=== PATIENT | female | born 1950 | race Caucasian/White ===

== ENCOUNTER 2016-06-03 20:51 | Emergency (ER) | payer OTHER ==
[2016-06-03 21:00] VITALS: RESP 16
[2016-06-03] MEDS ORDERED: HYDROmorphONE/DILAUDID 1 MG/ML SYR ONE (21:15)
[2016-06-03] MEDS ORDERED: ONDANSETRON 4 MG/2 ML VIAL ONE (21:15)
[2016-06-03] MEDS ORDERED: HYDROmorphONE/DILAUDID 1 MG/ML SYR IVP ONE (21:27)
[2016-06-03] MEDS ORDERED: ONDANSETRON 4 MG/2 ML VIAL IVP ONE ×2 (21:27→22:13)
[2016-06-03] MEDS ORDERED: NS 1,000 ML IV ONE (21:27)
[2016-06-03 22:14] VITALS: O2SAT 97
[2016-06-03] MEDS ORDERED: METOCLOPRAMIDE 10 MG/2 ML VIAL IVP ONE (22:21)
[2016-06-03] MEDS ORDERED: fentaNYL 100 MCG/2 ML INJ IVP ONE (22:42)
[2016-06-03] MEDS ORDERED: fentaNYL 100 MCG/2 ML INJ ONE (22:47)
--- NOTE | 2016-06-03 23:32 | EDPHY ---
H & P Stated Complaint: Left Arm Deformity HPI/ROS: Chief complaint: Left wrist injury History of present illness: This is a 65-year-old female who presents to the emergency department for a left wrist injury. Patient reports just prior to arrival she tripped and fell into the wrist injuring it. She has noted a deformity to the wrist. She cannot move it secondary to pain. He denies associated signs or symptoms including no open wounds, no paresthesias and no abnormal coolness distal to the injury. She denies trauma to the rest of the body. No other complaints. - Personal History Current Tetanus/Diphtheria Vaccine: Yes Current Tetanus Diphtheria and Acellular Pertussis (TDAP): Yes - Medical/Surgical History Hx Asthma: No Hx Chronic Respiratory Disease: No Hx Diabetes: No Hx Cardiac Disease: No Hx Renal Disease: No Hx Cirrhosis: No Hx Alcoholism: No Hx HIV/AIDS: No Hx Splenectomy or Spleen Trauma: No - Social History Smoking Status: Never smoked - Physical Exam Exam: General: Alert, nontoxic Skin: No open wounds to the left upper extremity Musculoskeletal: Obvious deformity of the left wrist. She does not ranges secondary to pain. She is able to move the digits in the left hand. The hand , the proximal forearm, elbow and upper arm are unremarkable. She is moving the elbow and shoulder well. Vascular: Radial pulses 2+. Capillary refill brisk in the left hand. Neurologic: Sensation appears intact throughout the left upper extremity Constitutional: Initial Vital Signs Temperature (C) 37 C 06/03/16 20:56 Heart Rate 76 06/03/16 20:56 Respiratory Rate 16 06/03/16 20:56 Blood Pressure 126/80 H 06/03/16 20:56 O2 Sat (%) 100 06/03/16 20:56 O2 Delivery Mode Room Air Allergies/Adverse Reactions: No Known Allergies Allergy (Unverified 06/03/16 21:02) Home Medications: Medication Instructions Recorded Hydrocodone/APAP 5/325 [[place] 1 tab PO Q4 #10 tab 06/03/16 5/325 (*)] Ondansetron Odt [Zofran Odt 4 mg 4 mg PO Q4 #6 tab 06/03/16 (*)] ZYRTEC 06/03/16 Medical Decision Making - Diagnostics Imaging: X-ray series left wrist does show a distal radius fracture with dorsal angulation an ulnar styloid fracture Post reduction x-rays show improved alignment Procedures: Verbal consent was obtained from the patient. A hematoma block was placed using 1% lidocaine without epinephrine. Patient tolerated the procedure well. She gained good anesthesia from the procedure. Procedure: Fracture reduction. The wrist was reduced in the usual fashion without complications. Post reduction the patient's neurovascular exam is normal. Post reduction x-ray demonstrates reduction of the joint to close anatomic position. The procedure was performed by myself. Procedure: Splint placement. A sugar-tong splint was applied. After application of the splint I returned and re-examined the patient. The splint was adequately immobilizing the joint and distal to the splint the patient's circulation and sensation was intact. Patient placed in a sling ED Course/Re-evaluation: Patient discussed with my secondary supervising physician Dr. Stan Brewster. Patient presents to the emergency department for a left wrist injury. The left upper extremity does appear to be neurovascularly intact. X-ray confirms fracture. Fracture is reduced and splinted. Patient reports she is much more comfortable with positioning and splinting of fracture. Patient did become quite nauseated in the emergency room. This has been treated. Patient is discharged home. Home care is discussed. She is referred to Orthopedics for further evaluation and care. Return precautions are given. Patient voiced understanding and agreement with plan. Differential Diagnosis: Included but not limited to contusion, sprain or strain, fracture, joint dislocation, no evidence of open pathology - Data Points Medications Given: Discontinued Medications Hydrocodone Bitart/Acetaminophen ([place] 5/325mg Prepack#6) 1 btl TAKEHOME EDNOW ONE Stop: 06/03/16 23:34 Last Admin: 06/03/16 23:37 Dose: 1 btl Fentanyl (Sublimaze) 100 mcg IVP EDNOW ONE Stop: 06/03/16 22:43 Last Admin: 06/03/16 23:00 Dose: 100 mcg Hydromorphone HCl (Dilaudid) 1 mg IVP EDNOW ONE Stop: 06/03/16 21:28 Last Admin: 06/03/16 21:27 Dose: 1 mg Sodium Chloride (Ns) 1,000 mls @ 0 mls/hr IV ONCE ONE PRN Reason: Wide Open Stop: 06/03/16 21:28 Last Admin: 03/16/17 21:28 Dose: 1,000 mls Metoclopramide HCl (Reglan Injection) 10 mg IVP EDNOW ONE Stop: 06/03/16 22:22 Last Admin: 06/03/16 23:00 Dose: 10 mg Ondansetron HCl (Zofran) 4 mg IVP EDNOW ONE Stop: 06/03/16 21:28 Last Admin: 06/03/16 21:28 Dose: 4 mg Ondansetron HCl (Zofran) 4 mg IVP EDNOW ONE Stop: 06/03/16 22:14 Last Admin: 06/03/16 22:13 Dose: 4 mg Ondansetron HCl (Zofran Odt 4 Mg Prepack#2) 1 btl TAKEHOME EDNOW ONE Stop: 06/03/16 23:34 Last Admin: 06/03/16 23:38 Dose: 1 btl Departure - Departure Disposition: Home, Routine, Self-Care Clinical Impression: Wrist fracture, left Qualifiers: Encounter type: initial encounter Fracture type: closed Qualified Code(s): S62.102A - Fracture of unspecified carpal bone, left wrist, initial encounter for closed fracture Condition: Good Instructions: Hydrocodone/Acetaminophen (By mouth), Ondansetron (By mouth), Wrist Fracture in Adults (ED) Additional Instructions: Follow-up with orthopedics for continued evaluation and care In addition You have been prescribed [[place]] for pain. [[place]] contains Tylenol , do not take extra Tylenol/acetaminophen/Apap with it. It is sedating. If symptoms worsen or new symptoms develop return to the emergency department for recheck Referrals: Rachel Valdivia MD [Primary Care Provider] - As per Instructions Hugo Ray MD [Medical Doctor] - As per Instructions Prescriptions: Hydrocodone/APAP 5/325 [[place] 5/325 (*)] 1 tab PO Q4 #10 tab Ondansetron Odt [Zofran Odt 4 mg (*)] 4 mg PO Q4 #6 tab
[2016-06-03] MEDS ORDERED: ONDANSETRON 4MG PREPACK#2 BTL TAKEHOME ONE (23:33)
[2016-06-03] MEDS ORDERED: HYDROCOD/APAP 5/325 PREPACK#6 BTL TAKEHOME ONE (23:33)
[2016-06-03] MEDS ORDERED: LORazepam 2 MG/ML INJ ONE (23:49)
[2016-06-04 00:01] VITALS: BP 123/74; PULSE 67; TEMP 98.1
== END 2016-06-04 00:06 | disposition home or self-care (01) ==
PROC: 0PSJXZZ Reposition Left Radius, External Approach (ICD-10-PCS; principal; 2016-06-03)
DX: S52.502A Unspecified fracture of the lower end of left radius, initial encounter for closed fracture (principal); S52.612A Displaced fracture of left ulna styloid process, initial encounter for closed fracture; W01.0XXA Fall on same level from slipping, tripping and stumbling without subsequent striking against object, initial encounter
CPT/HCPCS: 96374; A4565; J1170; J2060; J2405; J2765; J3010

== ENCOUNTER → 2017-06-10 | Outpatient (CLI) | payer OTHER | LOC: FIMAGING 12:17 | PROVIDERS: ATTEND Internal Medicine | DX: Z12.31 Encounter for screening mammogram for malignant neoplasm of breast (principal); Z13.820 Encounter for screening for osteoporosis; M81.0 Age-related osteoporosis without current pathological fracture; Z78.0 Asymptomatic menopausal state; Z87.81 Personal history of (healed) traumatic fracture ==